=== PATIENT | male | born 1965 | race Two or more races ===

== ENCOUNTER → 2017-11-15 | Outpatient (CLI) | payer BC ==
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
== END | disposition home or self-care (01) ==
LOC: SLEEP 15:56
PROVIDERS: ATTEND Internal Medicine
DX: G47.33 Obstructive sleep apnea (adult) (pediatric) (principal); E66.9 Obesity, unspecified; K21.9 Gastro-esophageal reflux disease without esophagitis; T78.40XA Allergy, unspecified, initial encounter; Z96.651 Presence of right artificial knee joint; Z87.19 Personal history of other diseases of the digestive system; Z87.891 Personal history of nicotine dependence; Z79.899 Other long term (current) drug therapy; Z68.33 Body mass index [BMI] 33.0-33.9, adult
CPT/HCPCS: 99211

== ENCOUNTER → 2024-08-29 | Outpatient (CLI) | payer OTHER ==
[2024-08-29 10:12] LABS: INR 0.9 (<1.2); Partial Thromboplastin Time 26.2 sec (22.0-30.0); Prothrombin Time 10.5 sec (10.0-12.5)
[2024-08-29 15:33] LABS: HCT 44.7 % (39.6-50.0); HGB 14.5 g/dL (13.0-17.0); MCH 29.2 pg (27.0-32.0); MCHC 32.4 g/dL (32.0-37.0); MCV 89.9 FL (80.0-97.0); Mean Platelet Volume 11.7 FL (9.5-12.2); NRBC Per 100 WBC 0 X 10*3/uL (0.00-0.01); Platelet Count 209 X 10*3/uL (140-440); RBC 4.97 X 10*6/uL (4.40-5.60); WBC 4.91 X 10*3/uL (4.50-10.00)
[2024-08-29 15:50] LABS: ALT 43 U/L (10-49); AST 28 U/L (14-35); Albumin 4.4 g/dL (3.8-4.9); Albumin/Globulin Ratio 1.69 Ratio (1.60-3.17); Alkaline Phosphatase 59 U/L (41-126); BUN/Creat Ratio 31.12 Ratio (12.00-20.00); Blood Urea Nitrogen 24.9 mg/dL (9.0-27.0); Calcium 9.6 mg/dL (8.7-10.3); Carbon Dioxide 23.9 mmol/L (21.6-31.8); Chloride 102 mmol/L (96-109); Globulin 2.6 g/dL (1.6-3.3); Glucose 113 mg/dL (70-110); Potassium 4.2 mmol/L (3.5-5.5); Sodium 138 mmol/L (135-145); Total Bilirubin 0.4 mg/dL (0.3-1.2)
== END | disposition home or self-care (01) ==
LOC: LABPAT 09:13
PROVIDERS: ATTEND Orthopaedic Surgery
DX: Z01.812 Encounter for preprocedural laboratory examination (principal); M17.12 Unilateral primary osteoarthritis, left knee; Z22.322 Carrier or suspected carrier of Methicillin resistant Staphylococcus aureus
CPT/HCPCS: 80053; 85027; 85610; 85730; 87070

== ENCOUNTER 2024-09-09 07:30 | Inpatient (IN) | payer BC, OTHER ==
[2024-09-03 09:08] VITALS: BMI 36.1
[~2024-09-09 07:30] MED LIST: LIDOCAINE 1% (10MG/ML) FOR IV START INTRADERMA PRN; TRANEXAMIC 1,000 MG/100ML-NACL 1,000 MG in SALINE 1 100ML.BAG IVPB PRN; fentaNYL (PF) 50 MCG/ML 2 ML AMP IVP PRN
[2024-09-09] MEDS: IV FLUID CONTINUATION 1,000 ML IV ONE ×2 (10:13→16:07)
[2024-09-09] MEDS: LACTATED RINGERS 1,000 ML IV SCH (10:20)
[2024-09-09] MEDS: MELOXICAM 7.5 MG TAB PO PRN (10:25)
[2024-09-09] MEDS: GABAPENTIN 300 MG CAP PO PRN (10:25)
[2024-09-09] MEDS: ACETAMINOPHEN TAB 500 MG TAB PO PRN (10:25)
[2024-09-09] MEDS: MIDAZOLAM 2 MG/2 ML VIAL IV PRN (10:31)
[2024-09-09] MEDS: ONDANSETRON 4 MG/2 ML VIAL IVP ONE (10:55)
[2024-09-09] MEDS: DEXAMETHASONE SOD PHOSPHATE 4 MG/ML 1 ML VIAL IV ONE (10:55)
--- NOTE | 2024-09-09 10:58 | P.ANPRN ---
Procedure Note - Anesthesia - Nerve Block Performed Left Adductor Canal Infusion Time Out Performed: Yes (1030) Date of Procedure: 09/09/24 Location of Patient: PreOp Indication: Acute Post-Operative Pain, Dx/Pain Location (Left knee), Requested by Surgeon Specifically requested for management of pain by : Jonathan Peres Sedation Type: Sedate with meaningful contact maintained Preparation: Sterile Prep, Sterile Dressing Position: Supine Catheter: Indwelling Needle Types: Pajunk Needle Gauge: 18 Ultrasound used to visualize needle placement: Yes Ultrasound used to observe medication spread: Yes Injectate: 0.5% Ropivacaine (see comment for volume) (20 mL +10 mL of normal saline) Blood Aspirated: No Pain Paresthesia on Injection Noted: No Resistance on Injection: Normal Image Stored and Saved: Yes Events: Uneventful and Well Tolerated Left iPack Single Time Out Performed: Yes Date of Procedure: 09/09/24 Location of Patient: PreOp Indication: Acute Post-Operative Pain, Dx/Pain Location (Left knee pain), Requested by Surgeon Specifically requested for management of pain by DrJoanne: Jonathan Peres Sedation Type: Sedate with meaningful contact maintained Preparation: Sterile Prep Position: Right Lateral Catheter: None Needle Types: Pajunk Needle Gauge: 21 Ultrasound used to visualize needle placement: Yes Ultrasound used to observe medication spread: Yes Injectate: 0.5% Ropivacaine (see comment for volume) (20 mL +10 mL of normal saline) Blood Aspirated: No Pain Paresthesia on Injection Noted: No Resistance on Injection: Normal Image Stored and Saved: Yes Events: Uneventful and Well Tolerated
[2024-09-09] MEDS ORDERED: TRANEXAMIC 1,000 MG/100ML-NACL PREMIX BAG ONE (11:07)
[2024-09-09] MEDS ORDERED: MIDAZOLAM 2 MG/2 ML VIAL ONE (11:07)
[2024-09-09] MEDS ORDERED: PHENYLEPHRINE 10 MG/ML VIAL ONE (11:07)
[2024-09-09] MEDS ORDERED: PROPOFOL 10 MG/ML 20 ML VIAL IV ONE (11:07)
[2024-09-09] MEDS ORDERED: fentaNYL (PF) 50 MCG/ML 2 ML AMP ONE (11:07)
[2024-09-09] MEDS ORDERED: ROPIVACAINE 5 MG/ML 30 ML VIAL ONE (11:07)
[2024-09-09] MEDS ORDERED: ePHEDrine 50 MG/ML 1 ML VIAL ONE (11:07)
[2024-09-09] MEDS ORDERED: SODIUM CHLORIDE 0.9% (PF) 10 ML VIAL ONE (11:07)
[2024-09-09] MEDS: ceFAZolin 1,000 MG in SODIUM CHLORIDE 0.9% 1,000 ML IRRIGATION ONE (11:09)
[2024-09-09] MEDS: LACTATED RINGERS 1,000 ML IV ONE (12:15)
--- NOTE | 2024-09-09 13:02 | P.OP ---
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 Failed left total knee arthroplasty 2. Arthrofibrosis left total knee Procedure(s) Performed: 1. Revision left total knee arthroplasty 2. Lysis of adhesions Implants: Leos [employer] Nephew Legion Oxinium constrained femoral component size 7, right Leos [employer] Nephew Legion press-fit stem, straight 18 mm x 160 mm Leos & Nephew legion revision tibial baseplate size 7, right Le[employer] Nephew Legion offset farm crew member, 6 mm Le[employer]hew Legion press-fit stem, straight 12 mm x 160 mm Leos & Nephew Mahsa II constrained articular insert size 7-8, 21 mm All components were cemented using Palacos R bone cement.. The articulation is Oxinium on polyethylene. Anesthesia: spinal Surgeon: Jonathan Peres Store Assistant #1: Nedra Sue Estimated Blood Loss (ml): 100 Pathology: none sent Condition: stable Disposition: PACU Indications for Procedure: This is a 59-year-old gentleman that had a left total knee arthroplasty performed at another hospital on 08/14/2022. Discontinue to have pain and swelling in his left knee. Infectious workup has been negative. X-rays and bone scan demonstrate probable loosening of the tibial component. After discussing the surgical and nonsurgical treatment options at length, I recommended a revision of his left total knee arthroplasty. Informed consent was obtained. Operative Findings: Operative findings are consistent with severe stiffness and arthrofibrosis of the left total knee with significant intra-articular adhesions Description of Procedure: Patient was seen in the preoperative area consent was reviewed and operative site was marked with a skin marker. An adductor canal pain catheter was placed by anesthesia in the preoperative area. Patient was then brought to the operating room and given preoperative antibiotics intravenously. A general anesthetic was administered by the anesthesia department. A tourniquet was placed on the upper thigh and the lower extremity was prepped and draped in usual sterile fashion. A gram of transexamic acid was given. A universal timeout was then performed which confirmed the patient's name, surgical site, ALLERGIES, and consent. The lower extremity was then exsanguinated and tourniquet was inflated to 250 mmHg. A standard and anterior midline approach to the knee was performed. The skin and subcutaneous tissue was dissected down to the patellar tendon, with the prior scar being excised. A medial parapatellar arthrotomy was then performed. A moderate amount of clear fluid was encountered.. The knee was then extended, the patellar was everted, and the knee was again flexed. The knee was able to be only flex to approximately 90. There was a large amount of adhesions globally about the kneearea on inspection of the polyethylene, was found to be quite thick, which may have contributed to the lack of motion and pain. There was a screw holding the polyethylene in place, which was removed without difficulty, and the polyethylene was then removed. The thickness of the polyethylene appeared to be approximately 12-15 mm. Next, using a small oscillating saw, the implant/cement interface was disrupted between the femur and the femoral component. The femoral component was then removed with an osteotome and mallet with minimal bone loss. Attention was then directed to the tibia. Again using a small oscillating saw, the implant/bone interface was disrupted and the tibial component was removed with an osteotome and mallet with minimal bone loss. Attention was redirected to the femur. Sequential reaming of the femoral canal was performed until good cortical fit. The distal cutting guide was then placed over the reamer the distal femur cut was performed. Next the 4-in-1 cutting block was placed over the reamer and the appropriate cuts were performed. The cutting block and reamer were then removed and the femoral trial was placed. The bone was then removed for the box. Femoral trial was then removed. Attention was then redirected to the tibia. Sequential reaming of the tibial canal was performed until good cortical fit. The intramedullary proximal tibial cutting guide was then placed over the reamer, the proximal tibia was cut. The tibia was sized. The proximal tibia was then prepared. Trials were then placed with the appropriate-sized constrained liner. The knee was able to fully extend and flex to 120 and was stable throughout all range of motion. Trials were then removed. The cut surfaces of bone were then irrigated with pulsatile lavage. The knee was also irrigated with Irrisept solution. The components were then opened, the cement was mixed, and the components were then cemented in place. The cement was allowed to harden with the knee in full extension. After the cemented hardened. The tourniquet was released, and hemostasis was obtained. A second gram of transexamic acid was given. The knee was again irrigated. The knee was again taken through range of motion and found to be stable throughout all range of motion of 0-120. The fascia was then closed with #2 strata fix suture. The subcutaneous tissue was closed with 3-0 Vicryl and 3-0 strata fix. Exofin glue was used for the skin and placed with the knee in flexion. The patient was placed in a sterile silver dressing. Patient was then transferred to recovery room in stable condition. The product development assistant VIJAY Garces was required due the complexity surgery and the need for a skilled surgical territory manager. She assisted in positioning, draping, retraction, and closure of the wound.and closure of the wound.
[2024-09-09] MEDS ORDERED: MAGNESIUM HYDROXIDE 2,400 MG/30 ML CUP PO PRN (13:45)
[2024-09-09] MEDS ORDERED: HYDROmorphone 0.5 MG/0.5 ML SYRINGE IVP PRN ×2 (13:45)
[2024-09-09] MEDS ORDERED: bisacodyL 10 MG SUPP RECTAL PRN (13:45)
[2024-09-09] MEDS ORDERED: NALOXONE 0.4 MG/ML 1 ML VIAL IV PRN (13:45)
[2024-09-09] MEDS ORDERED: NA PHOS,M-B/NA PHOS,DI-BA 133 ML ENEMA RECTAL PRN (13:45)
[2024-09-09] MEDS: ROPIVACAINE 1,100 MG, SODIUM CHLORIDE 0.9% 500 ML 330 ML, EMPTY PAIN BALL 1 EACH MISCELLANE PRN (13:45)
[2024-09-09] MEDS ORDERED: ONDANSETRON 4 MG/2 ML VIAL IVP PRN (13:45)
--- NOTE | 2024-09-09 14:24 | XR ---
EXAMINATION TYPE: XR knee limited LT DATE OF EXAM: 09/09/2024 2:16 PM COMPARISON: None. CLINICAL INDICATION: Male, 59 years old with history of Evaluation for Postop abnormality and alignme nt, pain TECHNIQUE: 2 view(s) obtained. FINDINGS: No acute fractures or dislocations. Soft tissues and postsurgical changes are evident. No joint effus ion is evident. Posterior patellar spurs are present. IMPRESSION: 1. No acute osseous abnormality post right knee replacement [facility] Queta Alvarez, , 09/09/2024 2:22 PM
[2024-09-09] MEDS: HYDROmorphone 0.5 MG/0.5 ML SYRINGE IVP PRN (14:29)
[2024-09-09] MEDS: SODIUM CHLORIDE 0.9% 1,000 ML IV SCH (16:06)
[2024-09-09] MEDS: HYDROmorphone 1 MG/ML 1 ML SYRINGE IVP PRN (18:38)
[2024-09-09] MEDS: HYDROcodone/APAP 7.5-325MG 1 EACH TAB PO PRN (20:14)
[2024-09-09] MEDS: ASPIRIN 325 MG TAB PO SCH (21:25)
[2024-09-09] MEDS: SENNOSIDES-DOCUSATE SODIUM 1 EACH TAB PO SCH (21:25)
[2024-09-09] MEDS: PREGABALIN 50 MG CAP PO SCH (21:25)
[2024-09-09] MEDS: lisinopriL 10 MG TAB PO SCH (21:25)
[2024-09-10] MEDS: HYDROcodone/APAP 7.5-325MG 1 EACH TAB PO PRN (06:12)
--- NOTE | 2024-09-10 07:07 | P.PN ---
Progress Note - Text Progress Note Date: 09/10/24 Postoperative day # 1 status post total knee arthroplasty, on adductor canal perineural catheter placed for postoperative analgesia. Ropivacaine 0.2% 8 mL per hour through ON-Q pump continuous infusion. Pain control fair. On visual analog scale 4/10 Patient is taking PRN oral pain medications. Catheter site: Looks Ok. There is no erythema or tenderness. Continue with the current pain management plan and will follow.
[2024-09-10] MEDS: PANTOPRAZOLE 40 MG TABLET PO PRN (09:05)
[2024-09-10 09:11] VITALS: BP 110/71; PULSE 78; RESP 17; TEMP 98.2
[2024-09-10 09:45] LABS: HCT 38.8 % (39.6-50.0); MCH 28.9 pg (27.0-32.0); MCHC 30.9 g/dL (32.0-37.0); MCV 93.5 FL (80.0-97.0); Mean Platelet Volume 11.8 FL (9.5-12.2); NRBC Per 100 WBC 0 X 10*3/uL (0.00-0.01); Platelet Count 181 X 10*3/uL (140-440); RBC 4.15 X 10*6/uL (4.40-5.60); RDW 13.3 % (11.5-14.5)
[2024-09-10 09:46] LABS: Basophils # (A) 0.01 X 10*3/uL (0.00-0.10); Basophils % (A) 0.1 %; Eosinophils # (A) 0.07 X 10*3/uL (0.04-0.35); Eosinophils % (A) 0.8 %; Lymphocytes # (A) 0.67 X 10*3/uL (0.90-5.00); Lymphocytes % (A) 8.1 %; Monocytes # (A) 0.49 X 10*3/uL (0.20-1.00); Monocytes % (A) 5.9 %; Neutrophils # (A) 7.02 X 10*3/uL (1.80-7.70); Neutrophils % (A) 84.6 %
--- NOTE | 2024-09-10 11:22 | P.DS ---
Providers Date of admission: 09/09/24 09:11 Expected date of discharge: 09/10/24 Attending physician: Jonathan Peres Consults: 09/09/24 13:45 Consult Physician Routine Consulting Provider: Sneha Pelletier Consult Reason/Comments: medical management Do you want consulting provider notified?: Yes Primary care physician: Lior Everett MD - Discharge Diagnosis(es) (1) Status post revision of total replacement of left knee Status: Acute Hospital Course: This is a 50-year-old male who was last seen with complaint of continued left knee pain. The patient has a known history of total left knee arthroplasty in the past. He has recently had loosening of components and presents to discuss surgical options. After discussion and consideration the patient elects to proceed with revision total left knee arthroplasty. The patient is seen preoperatively by his primary care physician and cleared for surgery. The patient is admitted to [facility] for revision total left knee arthroplasty. The procedure is performed without complication or sequelae. Patient is doing well postoperatively. Vital signs are stable at discharge. Labs are stable at discharge. the patient is ambulating well with walker with minimal assistance. The patient is discharged to home on postop day # 1 pending medical clearance. Please see orders and refer to the med rec for accurate list of medications. Patient Condition at Discharge: Good Plan - Discharge Summary Discharge Rx Participant: No New Discharge Prescriptions: New HYDROcodone/APAP 7.5-325MG [[place] 7.5-325] 1 - 2 tab PO Q6H PRN #32 tab PRN Reason: Pain Aspirin 325 mg PO BID #60 tab Pantoprazole [Protonix] 40 mg PO DAILY #30 tab Sennosides [Senokot] 2 tab PO DAILY PRN #60 tablet PRN Reason: Constipation Continue Omeprazole [PriLOSEC] 20 mg PO DAILY PRN PRN Reason: Heartburn lisinopriL [Zestril] 10 mg PO HS Pregabalin [Lyrica] 50 mg PO HS Acetaminophen Tab [Tylenol] 1,000 mg PO Q6HR PRN PRN Reason: Pain Discharge Medication List Omeprazole [PriLOSEC] 20 mg PO DAILY PRN 03/27/14 [History] lisinopriL [Zestril] 10 mg PO HS 03/27/14 [History] Acetaminophen Tab [Tylenol] 1,000 mg PO Q6HR PRN 09/03/24 [History] Pregabalin [Lyrica] 50 mg PO HS 09/03/24 [History] Aspirin 325 mg PO BID #60 tab 09/09/24 [Rx] HYDROcodone/APAP 7.5-325MG [[place] 7.5-325] 1 - 2 tab PO Q6H PRN #32 tab 09/09/24 [Rx] Sennosides [Senokot] 2 tab PO DAILY PRN #60 tablet 09/09/24 [Rx] Pantoprazole [Protonix] 40 mg PO DAILY #30 tab 09/10/24 [Rx] Follow up Appointment(s)/Referral(s): [facility], [NON-STAFF] - 1-2 Days ([facility] will call you to schedule your in home physical therapy visits. ) Lior Everett MD [Primary Care Provider] - 1 Week (office not answering Please call to schedule appointment) Jonathan Peres DO [Doctor of Osteopathic Medicine] - 09/24/24 1:00 pm Patient Instructions/Handouts: Knee Replacement (DC), Revision Total Joint Arthroplasty (DC) Activity/Diet/Wound Care/Special Instructions: Weightbearing as tolerated with a walker. Leave dressing intact. Dressing may be removed by home care nurse or by patient in 7 days. Then change dressing twice daily until follow up. May shower with initial dressing intact and after removal. If dressing become saturated, please remove. Recommend use of compression stockings daily until follow up to help prevent swelling and blood clots. May remove at night before sleeping. Please take aspirin 325mg twice daily for 30 days to prevent blood clots. Please follow up with [facility] and call with any questions or concerns, . Discharge Disposition: HOME WITH HOME HEALTH SERVICES
--- NOTE | 2024-09-10 13:39 | P.CONS ---
History of Present Illness - Reason for Consult Consult date: 09/10/24 Medical management - History of Present Illness History of present illness; patient is a 59-year-old gentleman with past medical his significant for hypertension, bilateral total knee arthroplasties, hernia repairs who was scheduled for revision of left total knee. Patient has been having pain in his left knee and has discussed with orthopedic and the plan was for patient to undergo revision of left knee on 09/09. Postoperatively internal medicine team were consulted for medical management REVIEW OF SYSTEMS: CONSTITUTIONAL: No fever, no malaise, no fatigue. HEENT: No recent visual problems or hearing problems. Denied any sore throat. CARDIOVASCULAR: No chest pain, orthopnea, PND, no palpitations, no syncope. PULMONARY: No shortness of breath, no cough, no hemoptysis. GASTROINTESTINAL: No diarrhea, no nausea, no vomiting, no abdominal pain. NEUROLOGICAL: No headaches, no weakness, no numbness. HEMATOLOGICAL: Denies any bleeding or petechiae. GENITOURINARY: Denies any burning micturition, frequency, or urgency. MUSCULOSKELETAL/RHEUMATOLOGICAL: Left knee pain ENDOCRINE: Denies any polyuria or polydipsia. The rest of the 14-point review of systems is negative. PHYSICAL EXAMINATION: GENERAL: The patient is alert and oriented x3, not in any acute distress. Well developed, well nourished. HEENT: Pupils are round and equally reacting to light. EOMI. No scleral icterus. No conjunctival pallor. Normocephalic, atraumatic. No pharyngeal erythema. No thyromegaly. CARDIOVASCULAR: S1 and S2 present. No murmurs, rubs, or gallops. PULMONARY: Chest is clear to auscultation, no wheezing or crackles. ABDOMEN: Soft, nontender, nondistended, normoactive bowel sounds. No palpable organomegaly. MUSCULOSKELETAL: Left knee surgical incision seen EXTREMITIES: No cyanosis, clubbing, or pedal edema. NEUROLOGICAL: Gross neurological examination did not reveal any focal deficits. SKIN: No rashes. 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 Continue same treatment. Continue with symptomatic treatment. Resume home medication. Monitor labs and vitals. DVT and GI prophylaxis. Further recommendations as per clinical course of the patient Dictation was produced using [employer] dictation software. please excuse any grammatical, word or spelling errors. Past Medical History Past Medical History: GERD/Reflux, Hearing Disorder / Deafness, Hypertension, Osteoarthritis (OA), Sleep Apnea/CPAP/BIPAP Additional Past Medical History / Comment(s): [place] - uses hearing aids, does not use CPAP History of Any Multi-Drug Resistant Organisms: None Reported Past Surgical History: Appendectomy, Heart Catheterization, Hernia Repair, Orthopedic Surgery, Tonsillectomy Additional Past Surgical History / Comment(s): Rt. inguinal hernia repair, colonoscopy, bilat. knee arthroscopy, bilat TKA, Left TKA revision Past Anesthesia/Blood Transfusion Reactions: No Reported Reaction Past Psychological History: No Psychological Hx Reported Smoking Status: Never smoker Past Alcohol Use History: Occasional Past Drug Use History: None Reported - Past Family History Father Family Medical History: Chest Pain / Angina, Myocardial Infarction ([place]) Additional Family Medical History / Comment(s): father had first heart attack at age 51, at age 63 Mother Family Medical History: Coronary Artery Disease (CAD) Brother(s) Family Medical History: Asthma Daughter(s) Family Medical History: Asthma Medications and Allergies Home Medications Medication Instructions Recorded Confirmed Type Omeprazole [PriLOSEC] 20 mg PO DAILY PRN 03/27/14 09/09/24 History lisinopriL [Zestril] 10 mg PO HS 03/27/14 09/09/24 History Acetaminophen Tab [Tylenol Tab] 1,000 mg PO Q6HR PRN 09/03/24 09/09/24 History Pregabalin [Lyrica] 50 mg PO HS 09/03/24 09/09/24 History Aspirin 325 mg PO BID #60 tab 09/09/24 Rx HYDROcodone/APAP 7.5-325MG [[place] 1 - 2 tab PO Q6H PRN #32 tab 09/09/24 Rx 7.5-325] Sennosides [Senokot] 2 tab PO DAILY PRN #60 tablet 09/09/24 Rx Pantoprazole [Protonix] 40 mg PO DAILY #30 tab 09/10/24 Rx Allergies Allergy/AdvReac Type Severity Reaction Status Date / Time cephalexin monohydrate Allergy Swelling Verified 09/09/24 10:11 [From Keflex] heparin Allergy low grade Verified 09/09/24 10:11 fever warfarin sodium Allergy Nausea & Verified 09/09/24 10:11 [From Coumadin] Vomiting & Diarrhea Physical Exam Vitals: Vital Signs Temp Pulse Pulse Resp BP Pulse Ox 09/10/24 07:07 98.2 F 78 17 110/71 93 L 09/10/24 00:40 98.5 F 98 18 113/72 92 L 09/09/24 19:13 97.6 F 88 20 123/80 95 09/09/24 18:24 97.3 F L 91 18 146/78 97 09/09/24 17:30 71 16 131/72 97 09/09/24 16:50 74 16 124/79 98 09/09/24 16:30 70 18 121/73 99 09/09/24 16:03 71 16 114/63 99 09/09/24 15:00 72 18 104/61 98 09/09/24 14:30 69 16 110/62 97 09/09/24 14:18 71 16 100/50 92 L 09/09/24 14:03 70 16 98/55 94 L 09/09/24 13:48 72 16 102/58 96 Intake and Output 09/09/24 09/10/24 09/10/24 22:59 06:59 14:59 Intake Total 450 540 Output Total 275 Balance 175 540 Intake: IV 450 Oral 540 Output: Urine 275 Other: Voiding Method Toilet Toilet # Voids 4 3 Weight 108 kg Results CBC & Chem 7: 09/10/24 03:43 Labs: Abnormal Lab Results - Last 24 Hours (Table) 09/10/24 Range/Units 03:43 RBC 4.15 L (4.40-5.60) X 10*6/uL Hgb 12.0 L (13.0-17.0) g/dL Hct 38.8 L (39.6-50.0) % MCHC 30.9 L (32.0-37.0) g/dL Lymphocytes # 0.67 L (0.90-5.00) X 10*3/uL
== END 2024-09-10 13:19 | disposition home health service (06) | DRG 468 ==
LOC: EDSTATUS 07:30 → 2ORMAIN 09:11 → 4SSUR 17:20
PROVIDERS: ADMIT Orthopaedic Surgery; ATTEND Orthopaedic Surgery
PROC: 0SRD06A Replacement of Left Knee Joint with Oxidized Zirconium on Polyethylene Synthetic Substitute, Uncemented, Open Approach (ICD-10-PCS; 2024-09-09)
PROC: 0SND0ZZ Release Left Knee Joint, Open Approach (ICD-10-PCS; 2024-09-09)
PROC: 0SPD0JZ Removal of Synthetic Substitute from Left Knee Joint, Open Approach (ICD-10-PCS; principal; 2024-09-09 13:15)
DX: T84.033A Mechanical loosening of internal left knee prosthetic joint, initial encounter (principal); I10 Essential (primary) hypertension; H91.93 Unspecified hearing loss, bilateral; M24.662 Ankylosis, left knee; K21.9 Gastro-esophageal reflux disease without esophagitis; Y79.2 Prosthetic and other implants, materials and accessory orthopedic devices associated with adverse incidents; Z96.651 Presence of right artificial knee joint; Z79.82 Long term (current) use of aspirin; Z79.899 Other long term (current) drug therapy; Z97.4 Presence of external hearing-aid
CPT/HCPCS: 64448; 64999; 85025